=== PATIENT | male | born 1980 | race Caucasian/White ===

== ENCOUNTER 2018-11-09 05:42 | Day surgery (SDC) | payer OTHER ==
[~2018-11-09] VITALS: Ht 188 cm; Wt 90.7 kg
[2018-11-09] MEDS ORDERED: LACTATED RINGERS 1,000 ML IV SCH (06:00)
[2018-11-09] MEDS ORDERED: BUPIVACAINE HCL/PF 0.5% (5MG/ML) 10ML ONE (06:35)
[2018-11-09] MEDS ORDERED: BUPIVACAINE HCL/EPINEPHRINE 0.5%/0.0005 30ML ONE ×2 (06:36→06:55)
[2018-11-09] MEDS ORDERED: SODIUM CHLORIDE 0.9% 1,000 ML IV ONE (08:05)
[2018-11-09] MEDS ORDERED: FINA1TAB18 PO (08:13)
[2018-11-09] MEDS ORDERED: NAPR220T66 PO (08:13)
[2018-11-09] MEDS ORDERED: HYDROMORPHONE HCL/PF 2MG/ML CPJ IV PRN (08:15)
[2018-11-09] MEDS ORDERED: ONDANSETRON HCL 4MG/2ML INJ IV PRN (08:15)
[2018-11-09] MEDS ORDERED: MEPERIDINE HCL/PF 25MG/ML CPJ IV PRN (08:15)
== END 2018-11-09 09:35 | disposition home or self-care (01) ==
LOC: OR 05:42
PROVIDERS: ATTEND Surgery
DX: K64.1 Second degree hemorrhoids (principal); Z88.0 Allergy status to penicillin; Z88.2 Allergy status to sulfonamides; Z98.890 Other specified postprocedural states; Z79.899 Other long term (current) drug therapy
CPT/HCPCS: 46945; 88304; J0171; J3490